=== PATIENT | male | born 1995 | race African-American/Black ===

== ENCOUNTER 2025-02-10 21:38 | Emergency (ER) | payer OTHER ==
[~2025-02-10] VITALS: Ht 165.1 cm; Wt 54.0 kg
[2025-02-10 21:43] VITALS: O2SAT 99
[2025-02-11 02:06] LABS: BASOPHILS % 0.9 % (0.0-2.0); EOSINOPHILS % 0.2 % (0.0-5.0); HEMATOCRIT. 45.7 % (42.0-52.0); HEMOGLOBIN. 14.7 g/dL (14.0-18.0); LYMPHOCYTES % 24.7 % (20.0-50.0); MEAN CORPUSCULAR HGB CONC 32.1 g/dL (31.0-37.0); MEAN CORPUSCULAR VOLUME 84.3 fL (80.0-94.0); MEAN PLATELET VOLUME 7.7 fl (7.4-10.4); MONOCYTES % 4.5 % (2.0-8.0); NEUTROPHILS % 69.7 % (40.0-76.0); PLATELET 193 x1000/uL (130-400); RED BLOOD CELL COUNT 5.43 mill/uL (4.7-6.1); RED CELL DISTRIBUTION WIDTH 14.1 % (11.6-14.6); WHITE BLOOD COUNT 5.6 x1000/uL (4.5-11.0)
[2025-02-11 02:11] LABS: CHLORIDE 105 mEq/L (98-107); POTASSIUM 3.7 mEq/L (3.5-5.1); SODIUM 143 mEq/L (136-145)
[2025-02-11 02:12] LABS: CALCIUM 9.7 mg/dL (8.7-10.4); CARBON DIOXIDE 32 mEq/L (21-32)
[2025-02-11 02:17] LABS: CREATININE 0.9 mg/dL (0.6-1.3); ETHANOL BLOOD 150 mg/dL (<10); GLUCOSE 117 mg/dL (70-105); UREA NITROGEN BLOOD 9 mg/dL (9-23)
[2025-02-11 02:19] LABS: ACETAMINOPHEN < 2 ug/mL (10-30); CREATINE KINASE 753 IU/L (46-171)
[2025-02-11 02:34] LABS: AMMONIA < 17 uMol/L (<32)
[2025-02-11 04:22] VITALS: BP 115/73; PULSE 85; RESP 16; TEMP 36.6; O2SAT 99
== END 2025-02-11 04:58 | disposition home or self-care (01) ==
LOC: EDBD 21:38 → ER 21:38
DX: F10.129 Alcohol abuse with intoxication, unspecified (principal); M62.82 Rhabdomyolysis; J45.909 Unspecified asthma, uncomplicated; Z79.899 Other long term (current) drug therapy; Y90.9 Presence of alcohol in blood, level not specified
CPT/HCPCS: 36415; 71045; 80048; 80307; 80320; 80329; 82140; 82550; 82962; 85025; 93005; 99285; G0480